=== PATIENT | male | born 1965 | race Caucasian/White ===

== ENCOUNTER → 2017-05-20 | Day surgery (SDC) | payer OTHER ==
[~2017-05-20] VITALS: Ht 175.3 cm; Wt 63.5 kg
[2017-05-20 07:49] LABS: CREATININE 0.7 mg/dL (0.7-1.2); POTASSIUM 4.5 mmol/L (3.5-5.1)
== END | disposition home or self-care (01) ==
LOC: FAS 07:05
PROVIDERS: Anesthesiology
DX: K40.91 Unilateral inguinal hernia, without obstruction or gangrene, recurrent (principal); K21.9 Gastro-esophageal reflux disease without esophagitis; I10 Essential (primary) hypertension; Z85.828 Personal history of other malignant neoplasm of skin; F17.200 Nicotine dependence, unspecified, uncomplicated
CPT/HCPCS: 36415; 80048; 88302; C1781; J0690; J1170; J2704; J2710; J3010

== ENCOUNTER 2021-06-24 13:09 | Emergency (ER) | payer OTHER ==
[~2021-06-24 13:09] MED LIST: NEXIUM20 MG PO; ZESTRIL30 MG PO
== END 2021-06-24 14:20 | disposition home or self-care (01) ==
LOC: FER 13:09
DX: S62.394A Other fracture of fourth metacarpal bone, right hand, initial encounter for closed fracture (principal); I10 Essential (primary) hypertension; W23.0XXA Caught, crushed, jammed, or pinched between moving objects, initial encounter
CPT/HCPCS: 73130; 99283